=== PATIENT | male | born 1985 | race Caucasian/White ===

== ENCOUNTER 2018-05-18 15:27 | Inpatient (IN) | payer OTHER ==
[~2018-05-18] VITALS: Ht 188 cm; Wt 122.4 kg
--- NOTE | ~2018-05-18 | EKG ---
[address] [place] [address] ELECTROCARDIOGRAM REPORT Name: MANUEL BYRD Room #: 241-P [facility] [place] .R.#: [id number] Admission: 05/18/18 Attend Phys: Hank Harper MD Discharge: Date of : 87 Report #: [id number] THIS REPORT FOR: //name// [facility] ED Test Date: 2018-05-18 Test Time: 15:39:35 Pat Name: MANUEL BYRD Department: Room: Gender: M Reel Cutter: jlambertz : 1985 Requested By: Dejon Jensen Order Number: [id number] MD: Jase Yan Measurements Intervals [place] Rate: 115 P: 79 VT: 142 QRS: 72 QRSD: 90 T: 41 QT: 341 QTc: 472 Interpretive Statements Sinus tachycardia Borderline prolonged QT interval No previous ECG available for comparison Electronically Signed On 05-19-2018 7:57:06 CDT by Jase Yan [email or web address] <ELECTRONICALLY SIGNED> By: Jase Yan MD, [facility] 05/19/18 [id number] Jase Yan MD, FACC /EPI
[2018-05-18 15:28] VITALS: BP 153/97
[2018-05-18 15:59] LABS: ABSOLUTE NEUTROPHILS 10.2 thou/uL (1.4-8.2); BASOPHILS 0.6 % (0.0-2.0); EOSINOPHILS 1.2 % (0.0-3.0); HEMATOCRIT 42.5 % (42.0-52.0); HEMOGLOBIN 14.5 gm/dL (14.0-18.0); LYMPHOCYTES 10.2 % (24.0-44.0); MCH 28.8 pg (26.0-34.0); MCHC 34.1 g/dL (28.0-37.0); MCV 84.4 fL (80.0-100.0); MONOCYTES 5.2 % (1.0-8.0); PLATELET COUNT 196 thou/uL (150-400); POLYS 82.8 % (36.0-66.0); RBC 5.04 mil/uL (4.50-6.00); RDW 14.7 % (10.5-14.5); WBC 12.3 thou/uL (4.0-11.0)
[2018-05-18 16:10] LABS: CALCIUM 8.6 mg/dL (8.5-10.1); CREATININE 1.2 mg/dL (0.7-1.3); POTASSIUM 3.9 mmol/L (3.5-5.1)
[2018-05-18 17:13] LABS: ALBUMIN 4.3 g/dL (3.4-5.0); DIRECT BILIRUBIN < 0.1 mg/dL (<0.1-0.3); SGOT 26 U/L (15-37); SGPT 26 U/L (30-65); TOTAL BILIRUBIN 0.3 mg/dL (<0.1-1.0); TOTAL PROTEIN 7.8 g/dL (6.4-8.2)
[2018-05-18 18:35] VITALS: BP 162/106
[2018-05-18 18:49] LABS: AMP/METHAMP Negative (Negative); BARBITURATES Negative (Negative); BENZODIAZEPINES Negative (Negative); COCAINE Negative (Negative); METHADONE Negative (Negative); OPIATES Negative (Negative); PCP POSITIVE (Negative)
[2018-05-19 06:00] LABS: HEMATOCRIT 38.3 % (42.0-52.0); HEMOGLOBIN 13.1 gm/dL (14.0-18.0); MCH 29.1 pg (26.0-34.0); MCHC 34.2 g/dL (28.0-37.0); RBC 4.51 mil/uL (4.50-6.00); RDW 14.8 % (10.5-14.5); WBC 8.4 thou/uL (4.0-11.0)
[2018-05-19 06:13] LABS: ALBUMIN 3.5 g/dL (3.4-5.0); CALCIUM 8.5 mg/dL (8.5-10.1); CREATININE 1.1 mg/dL (0.7-1.3); POTASSIUM 3.9 mmol/L (3.5-5.1); TOTAL BILIRUBIN 0.5 mg/dL (<0.1-1.0); TOTAL PROTEIN 6.7 g/dL (6.4-8.2)
[2018-05-20 06:15] VITALS: BP 146/107
[2018-05-20 07:54] VITALS: BP 155/109
[2018-05-20 16:08] VITALS: BP 129/83
[2018-05-20 20:31] VITALS: BP 148/97
[2018-05-21 04:18] VITALS: BP 144/99
[2018-05-21 07:40] VITALS: BP 136/88
[2018-05-21 11:49] VITALS: BP 136/88
[2018-05-21 15:00] VITALS: BP 146/93
[2018-05-21 20:00] VITALS: BP 138/89
[2018-05-22 05:53] VITALS: BP 132/90
[2018-05-22 07:48] VITALS: BP 152/80
[2018-05-22 08:35] VITALS: BP 131/96
[2018-05-22 11:56] VITALS: BP 131/96
[2018-05-22 12:36] VITALS: BP 131/96
[2018-05-22 21:06] LABS: TRICYCLIC (TCA) CONFIRMATION Positive ng/mL (Cutoff=100)
== END 2018-05-22 13:30 | disposition short-term general hospital (02) | DRG 917 ==
LOC: ER 15:27 → ICU 17:27 → 4E 17:27 → EROBS 17:27 → ICU 19:42 → 4E 05-20 05:55
PROVIDERS: Emergency Medicine; Hospitalist
DX: T50.992A Poisoning by other drugs, medicaments and biological substances, intentional self-harm, initial encounter (principal); E43 Unspecified severe protein-calorie malnutrition; R56.9 Unspecified convulsions; F39 Unspecified mood [affective] disorder; F32.9 Major depressive disorder, single episode, unspecified; F41.9 Anxiety disorder, unspecified; Y92.89 Other specified places as the place of occurrence of the external cause; Z79.899 Other long term (current) drug therapy
CPT/HCPCS: 10078; 10783